=== PATIENT | male | born 1985 | race Caucasian/White ===

== ENCOUNTER 2019-12-12 12:34 | Emergency (ER) | payer MEDICAID ==
[~2019-12-12] VITALS: Ht 175.3 cm; Wt 70.9 kg
[2019-12-12 12:37] VITALS: BP 124/86
[2019-12-12] MEDS ORDERED: CEPH250T PO (14:11)
[2019-12-12] MEDS ORDERED: BACDS PO (14:11)
== END 2019-12-12 14:34 | disposition home or self-care (01) ==
LOC: ER 12:35 → EDBD 12:35 → ER 14:34
DX: L08.89 Other specified local infections of the skin and subcutaneous tissue (principal); Z79.2 Long term (current) use of antibiotics
CPT/HCPCS: 99283

== ENCOUNTER 2024-09-05 00:12 | Emergency (ER) | payer MEDICAID ==
[~2024-09-05] VITALS: Ht 175.3 cm; Wt 70.2 kg
--- NOTE | 2024-09-05 01:54 | RADIOLOGY REPORT ---
Clinical History FB RIGHT 5th finger s/p lac Comparison None Technique: right finger 3 views Without Contrast YAMILETHDALILA, [id number] Findings: Bones: No displaced fracture. Soft tissues: fifth digit soft tissue swelling. No foreign body Joints: Visualized joints are within normal limits. Impression: 1. No acute fracture or dislocation. 2. Soft tissue swelling in the fifth digit 3. No radiopaque foreign body. This report was electronically signed by Fatoumata Parker MD on 09/05/2024 1:51:48 AM.
--- NOTE | 2024-09-05 03:04 | Physician Documentation ---
History of Present Illness ~ Chief Complaint: Laceration Stated Complaint: HAND LAC Time Seen by MD: 02:56 HPI Patient presents to the emergency room for evaluation of laceration to his lateral right 5th digit. Patient was but it was washing a glass in the sink when he cut himself. No other injuries reported Tetanus Within 5 Years: No Medication Reconciliation Allergies: Coded Allergies: No Known Allergies (Unverified , 09/05/24) Past Medical History Past Medical History: No Pertinent History Past Surgical History: noncontributory Alcohol Use: None Drug Use: none Lives In: Home Review of Systems ROS All review of systems negative except as per HPI Physical Exam Vital Signs: Temperature: 98.5, Source: Oral, Heart Rate: 89, Respiratory Rate: 15, BP: 132/83, Pulse Oximetry: 99, Weight: 70.180 Oxygen Flow Rate: 0 Physical Exam General: Patient is awake, alert, oriented x4 in no acute distress Head: Normocephalic and atraumatic. Eyes: Conjunctival normal. EOMI. PERRL. ENT: Mucous membranes moist. Neck: Supple, trachea is midline. Chest: Clear to auscultation bilaterally without rales, rhonchi, or wheezes. Th ere is no accessory muscle use or retractions. Cardiac: RRR without murmurs, gallops, or rubs. Extremity: Left upper extremity normal, right upper extremity with 3 cm full- thickness laceration to the lateral aspect of his 5th digit. Both flexion and extension movements intact with good opposition. Bleeding controlled. Procedures Procedure Note Laceration repair: Status post verbal consent patient was sterilely cleaned and draped. 2 cc of lidocaine with epinephrine utilized to anesthetize patient's laceration. Patient was wound was then thoroughly irrigated. Four simple interrupted sutures utilizing 3-0 Ethilon to approximate wound edges were used. Patient tolerated procedure well without complication. Antibiotic ointment and bandage applied a to wound. Total time of procedure 10 minutes Progress Results/Orders Results/Orders Orders - JACQUES DILLARD MD Finger(S) (09/05/24 01:46) Completed Orders - JACQUES DILLARD MD Finger(S) (09/05/24 01:46) Vital Signs 09/05/24 00:15 Temp 98.5 Pulse 89 Resp 15 B/P (MAP) 132/83 Pulse Ox 99 O2 Flow Rate 0 Medical Decision Making Findings Patient presented to the emergency room with laceration as per HPI. Differentials include but are not limited to foreign body, full-thickness laceration, tendinous rupture therefore x-ray performed which was negative for foreign body. All movements intact and I do not believe patient was suffering tendinous rupture. Wound edges approximated with 3-0 Ethilon numbering four. Wound care discussed as well as ER precautions regarding symptoms of infection in the need to have sutures removed. Departure Disposition: HOME / SELF CARE / HOMELESS Impression: Primary Impression: Laceration Condition: Stable Discharge Instructions: Laceration Care, Adult, [place] Additional Instructions: Keep wound clean and bandage with antibiotic ointment. Sutures need to be removed in 7-10 days Referrals: NO PRIMARY CARE PROVIDER (PCP) Education Educated: Patient Educated regarding: diagnosis, treatment, need for follow up Signature Scribe Signature: No scribe Attestation: The note accurately reflects work and decisions made by me.Jacques Dillard MD 09/05/24 03:29 JACQUES DILALRD MD September 05, 2024 03:04
[2024-09-05 03:42] VITALS: BP 130/80; PULSE 86; RESP 16; TEMP 98.6; O2SAT 99
== END 2024-09-05 03:43 | disposition home or self-care (01) ==
LOC: ER 00:12
DX: S61.411A Laceration without foreign body of right hand, initial encounter (principal); X58.XXXA Exposure to other specified factors, initial encounter; Y93.89 Activity, other specified; Y92.89 Other specified places as the place of occurrence of the external cause; Y99.8 Other external cause status
CPT/HCPCS: 12002; 73140; 99283; A6222; J7050; A6258; A6446; A6449

== ENCOUNTER 2024-09-14 20:08 | Emergency (ER) | payer MEDICAID ==
[~2024-09-14] VITALS: Ht 175.3 cm; Wt 59.1 kg
--- NOTE | 2024-09-14 21:40 | Physician Documentation ---
HPI ~ General Chief Complaint: Tooth Problem Stated Complaint: TOOTH PAIN Time Seen by MD: 20:18 History of Present Illness HPI Comment Patient is seen today with complaints of dental pain of left upper molar. Patient states pain and swelling started just a few days ago. Patient denies any fevers or chills. He has no other concern or complaint at this time. Medication Reconciliation Allergies: Coded Allergies: No Known Allergies (Unverified , 09/14/24) Past Medical History Past Medical History: No Pertinent History Past Surgical History: noncontributory Alcohol Use: None Drug Use: none Lives In: Home Review of Systems Constitutional: Denies: chills, fever, weakness Eyes: Denies: pain, blurred vision ENT: Denies: ear pain, nose pain, throat pain, mouth pain Respiratory: Denies: cough, shortness of breath Cardiovascular: Denies: chest pain, palpitations Gastrointestinal: Denies: abdominal pain, nausea, vomiting Genitourinary: Denies: burning, dysuria Male Genitalia: Denies: penile discharge, testicular pain Neurological: Denies: headache, dizziness Musculoskeletal: Denies: pain, swelling Integumentary: Denies: rash, lesions Allergic/Immunologic: Denies: hives, itching Hematologic/Lymphatic: Denies: no symptoms reported Psychiatric: Denies: depression, anxiety Physical Exam Vital Signs: Temperature: 98.5, Source: Oral, Heart Rate: 93, Respiratory Rate: 18, BP: 139/92, Pulse Oximetry: 100, Weight: 59.090 Physical Exam General: Awake and Alert, no acute distress. HEENT: Patient on exam does have swelling of the left upper maxilla/upper molar area. With facial swelling. Conjunctiva pink, Sclera clear, Mucus Membranes moist. Neck: Supple without masses and tenderness. Resp: Unlabored. Lungs clear to auscultation bilaterally. Heart: Regular Rate and rhythm, normal S1 and S2 without murmur, rub or gallop. Extremities: No cyanosis,clubbing or edema. Skin: Warm and Dry. Progress Results/Orders Results/Orders Vital Signs 09/14/24 20:13 Temp 98.5 Pulse 93 Resp 18 B/P (MAP) 139/92 Pulse Ox 100 Medical Decision Making Findings Patient is seen today with complaints of dental pain of left upper molar. Patient states pain and swelling started just a few days ago. Patient denies any fevers or chills. He has no other concern or complaint at this time. Patient was given dose of amoxicillin a 1000 mg by mouth in the ED tonight along with Toradol 30 mg IM. Prescription of amoxicillin 875 mg one tab twice a day by mouth sent to patient pharmacy along with ibuprofen 800 mg by mouth 3 times a day as needed for pain. Patient will follow up with dentist as soon as possible. Return to ED with any worsening, concerning or changing symptoms. Departure Disposition: HOME / SELF CARE / HOMELESS Impression: Primary Impression: Toothache Additional Impression: Dental abscess Additional Impression Text Patient was given dose of amoxicillin a 1000 mg by mouth in the ED tonight along with Toradol 30 mg IM. Prescription of amoxicillin 875 mg one tab twice a day by mouth sent to patient pharmacy along with ibuprofen 800 mg by mouth 3 times a day as needed for pain. Patient will follow up with dentist as soon as possible. Return to ED with any worsening, concerning or changing symptoms. Condition: Improved Discharge Instructions: Dental Pain Additional Instructions: Patient was given dose of amoxicillin a 1000 mg by mouth in the ED tonight along with Toradol 30 mg IM. Prescription of amoxicillin 875 mg one tab twice a day by mouth sent to patient pharmacy along with ibuprofen 800 mg by mouth 3 times a day as needed for pain. Patient will follow up with dentist as soon as pos sible. Return to ED with any worsening, concerning or changing symptoms. Referrals: NO PRIMARY CARE PROVIDER (PCP) Prescriptions Ibuprofen (Ibuprofen) 800 Mg Tablet 1 TAB PO Q8H for pain for 10 Days, #30 TAB 0 Refills Prov: NADER BRONW 09/14/24 Amoxicillin Trihydrate (Amoxicillin) 875 Mg Tablet 1 TAB PO Q12H for 10 Days, #20 TAB Prov: NADER BROWN 09/14/24 Signature Scribe Signature: No scribe Attestation: No scribe NADER BROWN September 14, 2024 21:40
[2024-09-14] MEDS ORDERED: IBUP-1986 PO (21:59)
[2024-09-14] MEDS ORDERED: AMOX875T10 PO (21:59)
[2024-09-14] MEDS: amoxicillin 250mg capsule PO STA (22:03)
[2024-09-14] MEDS: ketorolac trometh 30MG/ML vial 30 MG/ML VIAL IM STA (22:05)
[2024-09-14 22:09] VITALS: BP 129/70; PULSE 65; RESP 16; TEMP 98.5; O2SAT 99
== END 2024-09-14 22:10 | disposition home or self-care (01) ==
LOC: ER 20:09
DX: K04.7 Periapical abscess without sinus (principal); K08.89 Other specified disorders of teeth and supporting structures
CPT/HCPCS: 96372; 99283; J1885